=== PATIENT | female | born 1995 | race Caucasian/White ===

== ENCOUNTER 2023-06-06 06:53 | Day surgery (SDC) | payer BC ==
[2023-06-01 16:01] VITALS: BMI 29.2
[2023-06-06 07:30] LABS: Hematocrit 41.4 % (36.0-47.0)
[2023-06-06] MEDS ORDERED: Lidocaine 1% MPF 2 ML VIAL ONE (07:47)
[2023-06-06] MEDS ORDERED: Oxymetazoline HCl 0.05% (30 ML BOT) ONE ×2 (07:47→08:40)
[2023-06-06 07:50] LABS: BHCG - Serum Negative (NEGATIVE); Pregs Control Background? CLEAR/WHITE (CLR/WHITE); Pregs Control Bar Appear? YES (CONTROL BAR)
[2023-06-06] MEDS ORDERED: fentaNYL PF 100 MCG/2 ML SYRINGE ONE ×3 (08:04→10:37)
[2023-06-06] MEDS ORDERED: EPINEPHrine 1 MG/ML VIAL ONE (08:40)
[2023-06-06] MEDS ORDERED: Bacitracin Zinc Ointment 30 gm TUBE ONE (08:40)
[2023-06-06] MEDS ORDERED: Lidocaine 1% (PF) 30 ML VIAL ONE (08:40)
[2023-06-06] MEDS ORDERED: Ketorolac Tromethamine 30 MG (1 mL) VIAL ONE (08:45)
[2023-06-06] MEDS ORDERED: Ondansetron PF 4 MG/2 ML Vial ONE (08:45)
[2023-06-06] MEDS ORDERED: Dexmedetomidine 200 MCG/2 ML VIAL ONE (08:45)
[2023-06-06] MEDS ORDERED: Dexamethasone 20 MG/5 ML VIAL ONE (08:45)
[2023-06-06] MEDS ORDERED: PROPOFOL 20 ML ONE ×2 (09:12→10:37)
[2023-06-06] MEDS ORDERED: ePHEDrine Sulfate 50 MG/10 ML VIAL ONE ×2 (09:29→10:40)
[2023-06-06] MEDS ORDERED: NEOSTIGMINE 3 MG/3 ML SYR 3 MG/3 ML SYRINGE ONE (09:49)
[2023-06-06] MEDS ORDERED: Glycopyrrolate 0.2 MG/ML 5 ML SYRINGE ONE (09:49)
[2023-06-06] MEDS ORDERED: Rocuronium Bromide 10 MG/ML (10ML VIAL) ONE (10:41)
[2023-06-06] MEDS ORDERED: Hydrocodone-Acetamin 15 ML UDCUP ONE (12:04)
== END 2023-06-06 12:54 | disposition home or self-care (01) ==
LOC: SDC 06:53
PROVIDERS: ATTEND Otolaryngology Plastic Surgery within the Head & Neck
PROC: 099X8ZZ Drainage of Left Sphenoid Sinus, Via Natural or Artificial Opening Endoscopic (ICD-10-PCS; principal; 2023-06-06)
PROC: 099S8ZZ Drainage of Right Frontal Sinus, Via Natural or Artificial Opening Endoscopic (ICD-10-PCS; principal; 2023-06-06)
PROC: 09TL8ZZ Resection of Nasal Turbinate, Via Natural or Artificial Opening Endoscopic (ICD-10-PCS; principal; 2023-06-06)
PROC: 099U8ZZ Drainage of Right Ethmoid Sinus, Via Natural or Artificial Opening Endoscopic (ICD-10-PCS; principal; 2023-06-06)
PROC: 099T8ZZ Drainage of Left Frontal Sinus, Via Natural or Artificial Opening Endoscopic (ICD-10-PCS; principal; 2023-06-06)
PROC: 099W8ZZ Drainage of Right Sphenoid Sinus, Via Natural or Artificial Opening Endoscopic (ICD-10-PCS; principal; 2023-06-06)
PROC: 099V8ZZ Drainage of Left Ethmoid Sinus, Via Natural or Artificial Opening Endoscopic (ICD-10-PCS; principal; 2023-06-06)
PROC: 099R8ZZ Drainage of Left Maxillary Sinus, Via Natural or Artificial Opening Endoscopic (ICD-10-PCS; principal; 2023-06-06)
PROC: 099Q8ZZ Drainage of Right Maxillary Sinus, Via Natural or Artificial Opening Endoscopic (ICD-10-PCS; principal; 2023-06-06)
DX: J32.4 Chronic pansinusitis (principal); J34.2 Deviated nasal septum; J34.3 Hypertrophy of nasal turbinates; I10 Essential (primary) hypertension; Z98.890 Other specified postprocedural states; Z79.899 Other long term (current) drug therapy
CPT/HCPCS: 36415; 84703; 85014; J0171; J1100; J1885; J2001; J2405; J2704